=== PATIENT | male | born 1985 | race African-American/Black ===

== ENCOUNTER 2020-03-16 23:08 | Emergency (ER) | payer SELFPAY ==
[~2020-03-16] VITALS: Ht 172.7 cm; Wt 64.0 kg
[2020-03-16 23:55] VITALS: BP 117/70
[2020-03-16] MEDS: OLANZAPINE 10MG TABLET PO SCH (23:56)
== END 2020-03-17 00:18 | disposition home or self-care (01) ==
LOC: ER 23:08
DX: F41.8 Other specified anxiety disorders (principal); Z76.0 Encounter for issue of repeat prescription; R03.0 Elevated blood-pressure reading, without diagnosis of hypertension; Z59.0 Homelessness
CPT/HCPCS: 99283

== ENCOUNTER 2020-03-17 00:27 | Emergency (ER) | payer SELFPAY ==
[~2020-03-17] VITALS: Ht 167.6 cm; Wt 73.0 kg
[2020-03-17 05:09] LABS: BASOPHILS % 0.6 % (0.0-2.0); EOSINOPHILS % 1.5 % (0.0-5.0); HEMATOCRIT. 40.7 % (42.0-52.0); HEMOGLOBIN. 13.7 g/dL (14.0-18.0); LYMPHOCYTES % 28.3 % (20.0-50.0); MEAN CORPUSCULAR HEMOGLOBIN 32.3 pg (28.0-32.0); MEAN CORPUSCULAR VOLUME 95.9 fL (80.0-94.0); MONOCYTES % 9.7 % (2.0-8.0); NEUTROPHILS % 59.9 % (40.0-76.0); PLATELET 198 x1000/uL (130-400); RED BLOOD CELL COUNT 4.25 mill/uL (4.7-6.1); RED CELL DISTRIBUTION WIDTH 12.7 % (11.6-14.6)
[2020-03-17 05:14] LABS: CHLORIDE 109 mEq/L (98-107)
[2020-03-17 05:20] LABS: ETHANOL BLOOD < 10 mg/dL
[2020-03-17 05:21] LABS: *AMPHETAMINES SCREEN URINE NEGATIVE (NEGATIVE); *BARBITURATES SCREEN URINE NEGATIVE (NEGATIVE); *BENZODIAZEPINES SCREEN URINE NEGATIVE (NEGATIVE); *COCAINE SCREEN URINE NEGATIVE (NEGATIVE); METHADONE URINE SCREEN NEGATIVE (NEGATIVE)
[2020-03-17 05:22] LABS: CANNABINOID URINE SCREEN PRESUMTIVE POSITIVE (NEGATIVE); OPIATES URINE SCREEN NEGATIVE (NEGATIVE); PHENCYCLIDINE URINE SCREEN NEGATIVE (NEGATIVE)
[2020-03-17] MEDS ORDERED: DIPHENHYDRAMINE 25MG CAPSULE PO ONE (13:30)
[2020-03-17] MEDS: OLANZAPINE 5MG TABLET PO SCH ×2 (17:00→19:30)
[2020-03-18] MEDS: OLANZAPINE 5MG TABLET PO SCH (11:39)
[2020-03-18] MEDS: BUSPIRONE HCL 10MG TABLET PO SCH ×2 (11:39)
[2020-03-18 19:01] VITALS: BP 114/72
== END 2020-03-18 19:07 | disposition home or self-care (01) ==
LOC: ER 00:27
DX: R45.851 Suicidal ideations (principal); F31.9 Bipolar disorder, unspecified; F41.9 Anxiety disorder, unspecified; F12.10 Cannabis abuse, uncomplicated; F15.10 Other stimulant abuse, uncomplicated; F17.200 Nicotine dependence, unspecified, uncomplicated; Z20.828 Contact with and (suspected) exposure to other viral communicable diseases
CPT/HCPCS: 36415; 80053; 80305; 80307; 80320; 80329; 85025; 93005; 99285; C9803; U0003; G0480